=== PATIENT | female | born 1980 | race Caucasian/White ===

== ENCOUNTER 2023-11-10 16:20 | Emergency (ER) | payer OTHER, SELFPAY ==
[2023-11-10 16:30] VITALS: BP 129/88
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
[2023-11-10 19:41] VITALS: BP 121/62
== END 2023-11-10 19:43 | disposition home or self-care (01) ==
LOC: EMR 16:20
PROVIDERS: EMERGENCY PHYSICIAN Emergency Medicine
DX: S00.83XA Contusion of other part of head, initial encounter (principal); S20.219A Contusion of unspecified front wall of thorax, initial encounter; Y04.8XXA Assault by other bodily force, initial encounter; Y93.9 Activity, unspecified
CPT/HCPCS: 99284; 70486; 71046